=== PATIENT | male | born 1985 | race Caucasian/White ===

== ENCOUNTER 2021-08-03 18:31 | Emergency (ER) | payer BC, SELFPAY ==
--- NOTE | ~2021-08-03 | XR_ITS ---
EXAMINATION: XR CHEST CLINICAL INFORMATION: Shortness of breath COMPARISON: None TECHNIQUE: Frontal view of the chest was obtained. FINDINGS: The lungs are well expanded. Subtle patchy bilateral airspace opacities are noted. No pleural effusion or pneumothorax. The cardiomediastinal silhouette is within normal limits. No acute osseous abnormality. XR/XR chest 1V IMPRESSION: Subtle patchy bilateral airspace opacities could be infectious or inflammatory.
[2021-08-03 19:17] VITALS: BP 125/70; PULSE 104; RESP 16; TEMP 36.3; O2SAT 91; BMI 27.1
[2021-08-03 21:23] LABS: MANUAL DIFF FLAG SCAN; PLT CLUMP 1; Red Cell Distribution Width 11.9 % (11.0-16.0); SCAN SMEAR FLAG 1
[2021-08-03 21:25] LABS: Hematocrit 47.7 % (42-52); Hemoglobin 16.7 g/dl (14.0-18.0); Imm Gran Abs Auto 0.03 X10*3/uL (0.00-0.03); Imm Gran Pct Auto 0.5 % (0.0-0.4); Lymphocytes Absolute Auto 0.7 X10*3/uL (1.2-4.9); Lymphocytes Percent Auto 11.8 % (20-40); Mean Platelet Volume 10.3 fL (9.4-12.4); Monocytes Absolute Auto 0.4 X10*3/uL (0.1-1.2); Monocytes Percent Auto 6.4 % (2-11); Neutrophils Absolute Auto 4.8 X10*3/uL (2.0-8.3); Neutrophils Percent Auto 81.3 % (45-73); Red Blood Count 5.75 X10*6/uL (4.60-5.80); White Blood Count 5.9 X10*3/uL (4.8-10.8)
[2021-08-03 21:42] LABS: Platelet Count 132 X10*3/uL (160-400); SLIDE REVIEW VERIFIED
[2021-08-03 21:45] LABS: B Type Natriuretic Peptide < 10 pg/mL (<100); Troponin-I High Sensitivity 5.6 ng/L (<3.5-35.0)
[2021-08-03 21:46] LABS: Anion Gap 16 (12-20); Blood Urea Nitrogen 12 mg/dL (9-16); Calcium 8.6 mg/dL (8.4-10.2); Carbon Dioxide 19 mmol/L (22-29); Chloride 104 mmol/L (96-108); Creatinine Clr Calc Pharmacy 124.5; Estimated Glomerular Filt Rate > 60; Glucose Random 117 mg/dL (60-115); Potassium 4.6 mmol/L (3.3-5.1); Sodium 134 mmol/L (135-145)
--- NOTE | 2021-08-03 21:53 | ED.SOB ---
HPI - SOB/Dyspnea General Chief Complaint: Dyspnea Stated Complaint: Difficulty breathing/+Covid Time Seen by Provider: 08/03/21 21:53 Source: patient Mode of arrival: ambulatory Limitations: no limitations History of Present Illness HPI Narrative: patient has been sick for 8 days with COVID, no with increasing shortness of breath, weakness and myalgias MD elicited complaint: shortness of breath and cough Onset (ago): week(s) Context: recent illness Timing: constant Severity: mild Associated symptoms: fever, cough and nausea/vomiting Related Data Allergies Allergy/AdvReac Type Severity Reaction Status Date / Time No Known Allergies Allergy Verified 08/03/21 22:06 Review of Systems Constitutional: Constitutional: Reports no additional constitutional complaints Eyes: Eyes: Reports no additional eye complaints ENT: Denies dizziness Cardiovascular: Cardiovascular: Reports no additional cardiovascular complaints Respiratory: Respiratory: Reports as per HPI Gastrointestinal: Gastrointestinal: Reports no additional gastrointestinal complaints Musculoskeletal: Musculoskeletal: Reports no additional musculoskeletal complaints Integumentary/Breasts: Skin/Breast: Denies rash Neurologic: Reports system reviewed and no additional complaints, except as documented, Denies dizziness and Denies Sensory deficit (Neuro) Psychiatric: Psychiatric: Denies anxiety [facility] Social History Social History Advance Directives: No Advance Directives Information Provided: No Physical Exam Vital Signs: Vital Signs: Last Vital Signs Temp 97.3 F 08/03/21 19:17 Pulse 104 H 08/03/21 19:17 Resp 16 08/03/21 19:17 BP 125/70 08/03/21 19:17 Pulse Ox 91 L 08/03/21 19:17 Body Mass Index 27.1 Const: Nutritional Appearance: average body habitus Orientation/consciousness: oriented to person and patient oriented x3 Limitations: no limitations HENMT: Head: Yes normal to inspection Ears: external ears normal General nose exam: Normal external nose present Mouth: Normal oral and palatal mucosa present and oropharynx normal Throat: Yes posterior oropharynx normal Eyes: General: appearance normal, both eyes and all related structures Neck: Other: supple Neck: Yes normal visual inspection Chest: Chest palpation & inspection: normal inspection of the chest Resp: Other: fine crackles bilaterally Cardio: Jugular venous distension: no JVD Rate: regular rate Rhythm: regular rhythm Heart sounds: S1 normal heart sound present and S2 normal heart sound present GI: Inspection: Yes normal to inspection Palpation (GI): Soft to palpation, nontender and No hepatosplenomegaly present Auscultation: normal bowel sounds : General: Yes no CVA tenderness Back/Spine/Pelvis: Back: no CVA tenderness Skin: General skin exam: no rashes or lesions noted Neuro: General: oriented to person and patient oriented x3 Cranial nerves: Yes CN's II-XII intact bilaterally Motor exam (neuro): 5/5 motor strength present throughout Sensory Exam: No Sensory deficit (Neuro) Extrem: General: Yes normal to inspection Psych: Appearance: grossly normal Course Reevaluation(s) Reevaluation #1: Patient is not hypoxic, will dc home Time: 01:23 MDM - SOB/Dyspnea Lab Data Result diagrams: 08/03/21 21:16 08/03/21 21:16 Labs: Lab Results 08/03/21 08/03/21 08/03/21 Range/Units 21:16 21:16 21:16 WBC 5.9 (4.8-10.8) X10*3/uL RBC 5.75 (4.60-5.80) X10*6/uL Hgb 16.7 (14.0-18.0) g/dl Hct 47.7 (42-52) % MCV 83.0 (80-98) fL MCH 29.0 (27.0-33.0) pg MCHC 35.0 (31.0-36.0) g/dl RDW 11.9 (11.0-16.0) % Plt Count 132 L (160-400) X10*3/uL MPV 10.3 (9.4-12.4) fL Immature Gran % (Auto) 0.5 H (0.0-0.4) % Neut % (Auto) 81.3 H (45-73) % Lymph % (Auto) 11.8 L (20-40) % [place] % (Auto) 6.4 (2-11) % Eos % (Auto) 0.0 (0-4) % Baso % (Auto) 0.0 (0-2) % Lymph # (Auto) 0.7 L (1.2-4.9) X10*3/uL [place] # (Auto) 0.4 (0.1-1.2) X10*3/uL Eos # (Auto) 0.0 (0.0-0.4) X10*3/uL Baso # (Auto) 0.0 (0.0-0.2) X10*3/uL Abs Immat Gran (auto) 0.03 (0.00-0.03) X10*3/uL Absolute Neuts (auto) 4.8 (2.0-8.3) X10*3/uL Absolute Nucleated RBC 0.000 (0.0-0.012) X10*3/uL Nucleated RBC % (auto) 0.0 (0.0-0.2) /100WBC Smear Tech's Comments VERIFIED Sodium 134 L (135-145) mmol/L Potassium 4.6 (3.3-5.1) mmol/L Chloride 104 (96-108) mmol/L Carbon Dioxide 19 L (22-29) mmol/L Anion Gap 16 (12-20) BUN 12 (9-16) mg/dL Creatinine 0.90 (0.5-1.4) mg/dL Estim Creat Clear Calc 124.5 Estimated GFR > 60 Random Glucose 117 H (60-115) mg/dL Calcium 8.6 (8.4-10.2) mg/dL Troponin I High Sens 5.6 (<3.5-35.0) ng/L B-Natriuretic Peptide < 10 (<100) pg/mL Imaging Data Chest x-ray: Radiologist's impression: MPRESSION: Subtle patchy bilateral airspace opacities could be infectious or inflammatory. ? Discharge Plan Discharge Clinical Impression: COVID-19 Patient Disposition: Home, Self-Care Instructions: COVID-19 (Coronavirus Disease 2019) (ED) Referrals: Nathan Solorzano MD, DO [Primary Care Provider] - 1 week
[2021-08-03] MEDS: Ketorolac Tromethamine 15 MG/ML VIAL 30 MG IVPUSH (22:44)
[2021-08-03] MEDS: 0.9 % Sodium Chloride 1,000 ML 999 ML IVCONT (22:44)
[2021-08-04] MEDS: 0.9 % Sodium Chloride 1,000 ML 999 ML IVCONT (00:40)
== END 2021-08-04 01:37 | disposition home or self-care (01) ==
PROVIDERS: Emergency Provider Emergency Medicine; PCP Internal Medicine
DX: U07.1 COVID-19 (principal); R06.02 Shortness of breath
CPT/HCPCS: 36415; 71045; 80048; 83880; 84484; 85025; 96361; 96374; 99283; 99284; J1885

== ENCOUNTER 2021-09-21 16:00 | Outpatient (REF) | payer BC, SELFPAY ==
--- NOTE | ~2021-09-21 | XR_ITS ---
EXAMINATION: XR CHEST CLINICAL INFORMATION: COVID 19. COMPARISON: None TECHNIQUE: 2 views of the chest were obtained. FINDINGS: No significant abnormality is noted involving the heart, lungs, mediastinum, bony thorax or soft tissues. XR/XR chest 2V IMPRESSION: Unremarkable examination.
== END 2021-09-21 16:01 | disposition home or self-care (01) ==
LOC: HO.HMGCX 16:00
PROVIDERS: PCP Internal Medicine; Visit Provider Internal Medicine
DX: U07.1 COVID-19 (principal)
CPT/HCPCS: 71046

== ENCOUNTER 2022-05-17 19:10 | Emergency (ER) | payer BC, SELFPAY ==
[2022-05-17] VITALS (11 sets, daily range): BP systolic 106–150; BP diastolic 67–86; PULSE 60–81; RESP 14–24; O2SAT 96–100; BMI 30.3
--- NOTE | ~2022-05-17 | XR_ITS ---
EXAMINATION: XR SHOULDER, LEFT CLINICAL INFORMATION: Left shoulder injury. COMPARISON: None TECHNIQUE: Three views of the left shoulder. FINDINGS: There is anterior dislocation of left shoulder without any visible acute fracture or bony abnormality. The soft tissues are normal. XR/XR shoulder LT min 2V IMPRESSION: Anterior dislocation left shoulder without any visible fracture.
--- NOTE | ~2022-05-17 | XR_ITS ---
EXAMINATION: XR SHOULDER, LEFT CLINICAL INFORMATION: Post reduction x-ray COMPARISON: 7:31 PM today TECHNIQUE: Single view left shoulder of the left shoulder. FINDINGS: The previously seen anterior inferior dislocation has been reduced and on this single view, the glenohumeral joint appears unremarkable. No definite fracture is seen on this single view. XR/XR shoulder LT 1V IMPRESSION: Successful shoulder reduction
[2022-05-17] MEDS: Morphine Sulfate 4 MG/ML CARTRIDGE IVPUSH (19:52)
--- NOTE | 2022-05-17 20:08 | ED_ITS ---
HPI - Extremity Problem General Chief complaint: Extremity Injury, Upper Stated complaint: dislocated shoulder/ sports injury Time Seen by Provider: 05/17/22 19:41 Source: patient Mode of arrival: ambulatory Limitations: no limitations History of Present Illness HPI Narrative: 36-year-old male presents to ED for left shoulder dislocation. Patient states dislocated shoulder while playing baseball. Patient states he slipped. Patient denies hitting head or loss of consciousness. Patient states this has happened before in the past and reduce on his own. Patient states this occurred 30 minutes ago. Related Data Previous Rx's Medication Instructions Recorded naproxen 500 mg tablet 500 mg PO BID PRN pain 10 days #20 05/17/22 tabs Allergies Allergy/AdvReac Type Severity Reaction Status Date / Time No Known Allergies Allergy Verified 08/03/21 22:06 Review of Systems Review of Systems: Left shoulder dislocation Yes all other systems are reviewed and are negative [facility] Social History Social History Advance Directives: No Advance Directives Information Provided: Yes Physical Exam Vital Signs: Vital Signs: Last Vital Signs Pulse 60 05/17/22 21:53 Resp 16 05/17/22 21:53 BP 149/68 H 05/17/22 21:53 Pulse Ox 99 05/17/22 21:53 O2 Del Method 05/17/22 21:53 Oxygen Flow Rate 2 05/17/22 20:43 BMI result Body Mass Index 30.3 Const: General: cooperative, healthy appearing, comfortable, no acute distress, well developed, alert and awake Orientation/consciousness: patient oriented x3 HEENT: Head: Yes normal to inspection, Yes No palpable skull fracture present, Yes normocephalic, Yes atraumatic and No abrasion Eyes: General: appearance normal, both eyes and all related structures Neck: Neck: Yes normal visual inspection, Yes full ROM, Yes no lymphadenopathy, Yes no meningeal signs, Yes trachea midline, Yes supple, No anterior neck swelling and No tender Chest: Chest palpation & inspection: normal inspection of the chest and normal palpation of entire chest wall Resp: Effort & Inspection: normal respiratory effort and able to speak in complete sentences Cardio: Jugular venous distension: no JVD Heart sounds: S1 normal heart sound present and S2 normal heart sound present GI: Inspection: Yes normal to inspection and No abdominal wall ecchymosis Palpation (GI): Soft to palpation, not firm, nontender, no guarding and not rigid : General: No CVA tenderness and Yes no CVA tenderness Back/Spine/Pelvis: Back: no CVA tenderness, No CVA tenderness and No back tenderness Skin: General skin exam: no rashes or lesions noted and elasticity normal Neuro: General: patient oriented x3, gait normal, tone normal, no meningeal signs and CN's II-XI intact bilaterally Cranial nerves: Yes CN's II-XII intact bilaterally Extrem: Other: Obvious left shoulder deformity Psych: Appearance: grossly normal, well kempt and not disheveled Course Course Course Narrative: Shoulder x-ray ordered. Reevaluation(s) Reevaluation #1: Shoulder shows anterior dislocation. Reduction attempted without medication was not successful. Patient signed consent for conscious sedation for shoulder reduction. Used propofol Time: 20:33 Reevaluation #2: Patient presently alert oriented x3 waiting official read of shoulder post reduction x-ray. Time: 22:02 MDM - Extremity (Nontraumatic) MDM Narrative Medical decision making narrative: Shoulder dilocation Discharge Plan Discharge Clinical Impression: Dislocation of shoulder region Patient Disposition: Home, Self-Care Instructions: Shoulder Dislocation (ED), Closed Reduction (ED) Additional Instructions: You will need follow-up with orthopedic surgeon due to shoulder dislocation. Return to the ED immediately if shoulder dislocates again, headache, dizziness, nausea, vomiting, chest pain, shortness of breath, vomiting blood, blood in urine, blood in stool, abdominal pain, flank pain, or any other concerning symptoms. Prescriptions: New naproxen 500 mg tablet 500 mg PO BID PRN (Reason: pain) 10 Days Qty: 20 0RF Referrals: Zeus Badillo MD [Physician] - (Shoulder dislocation) Stand Alone Forms: Work/School Release Print Language: [place]an
[2022-05-17] MEDS: propofoL 200 MG/20 ML VIAL IVPUSH (20:36)
--- NOTE | 2022-05-17 20:58 | PC.NURSE ---
consious sedation performed, required 4 increments of 50mg propofol at 2035, 2036,2037,2039. pt able to move extremities, does not require supplemental oxygen. significant other at bedside
--- NOTE | 2022-05-17 22:03 | PC.NURSE ---
Pt CAOx4, ambulates with steady gait, and able to maintain airway with PO intake. Provider notified.
== END 2022-05-17 23:06 | disposition home or self-care (01) ==
PROVIDERS: Emergency Provider Internal Medicine; PCP Internal Medicine
DX: S43.005A Unspecified dislocation of left shoulder joint, initial encounter (principal); M25.512 Pain in left shoulder; Y93.67 Activity, basketball; Y93.9 Activity, unspecified; Y92.310 Basketball court as the place of occurrence of the external cause; Y99.9 Unspecified external cause status
CPT/HCPCS: 23655; 73020; 73030; 96374; 96375; 99284; J2270